=== PATIENT | male | born 1945 | race Caucasian/White ===

== ENCOUNTER 2016-08-22 14:49 | Outpatient (CLI) | payer OTHER ==
[2016-08-22 15:58] LABS: eGFR (African) > 60; eGFR (Non-African) > 60
== END 2016-08-22 14:50 ==
LOC: LAB 14:49
PROVIDERS: ATTEND Family Medicine
DX: E78.1 Pure hyperglyceridemia (principal); Z51.81 Encounter for therapeutic drug level monitoring
CPT/HCPCS: 36415; 80053; 80061

== ENCOUNTER 2017-08-29 15:12 | Outpatient (CLI) | payer OTHER ==
[2017-08-29 15:35] LABS: BASOPHILS % 0.6 (0.0-1.5); EOSINOPHILS % 4.1 % (0.0-6.8); MEAN CORPUSCULAR HEMOGLOBIN 21.5 pg (28.0-34.0); MEAN CORPUSCULAR VOLUME 74.9 fl (80.0-100.0); MONOCYTES % 3.9 % (0.0-11.0); NEUTROPHILS # 3.4 # k/uL (1.4-7.7)
[2017-08-29 16:12] LABS: eGFR (African) > 60; eGFR (Non-African) > 60
== END 2017-08-29 15:13 ==
LOC: LAB 15:12
PROVIDERS: ATTEND Family Medicine
DX: E78.00 Pure hypercholesterolemia, unspecified (principal); Z51.81 Encounter for therapeutic drug level monitoring; D50.9 Iron deficiency anemia, unspecified
CPT/HCPCS: 36415; 80053; 80061; 85025

== ENCOUNTER 2018-12-25 16:05 | Outpatient (CLI) | payer OTHER ==
[2018-12-25 16:48] LABS: MEAN CORPUSCULAR HEMOGLOBIN 29.2 pg (28.0-34.0)
[2018-12-25 16:49] LABS: BASOPHILS % 1 % (0-2); EOSINOPHILS % 1 % (0-7); MONOCYTES % 3 % (0-11); OVALOCYTES 1+ (NEGATIVE); SEGMENTED NEUTROPHILS % 28 % (39-79)
== END 2018-12-25 16:07 ==
LOC: LAB 16:05
PROVIDERS: ATTEND Family Medicine
DX: D50.9 Iron deficiency anemia, unspecified (principal)
CPT/HCPCS: 36415; 83540; 85025

== ENCOUNTER 2019-08-27 15:31 | Outpatient (CLI) | payer OTHER | END 2019-08-27 15:40 | LOC: LABRHC 15:31 | PROVIDERS: ATTEND Family Medicine | DX: Z00.00 Encounter for general adult medical examination without abnormal findings (principal); N40.2 Nodular prostate without lower urinary tract symptoms; E78.5 Hyperlipidemia, unspecified; D50.0 Iron deficiency anemia secondary to blood loss (chronic); Z79.899 Other long term (current) drug therapy | CPT/HCPCS: 80053; 80061; 84153; 85025 ==